=== PATIENT | male | born 1985 | race Caucasian/White ===

== ENCOUNTER → 2022-06-10 | Outpatient (REF) | payer OTHER | LOC: M LAB REF 16:33 | PROVIDERS: ATTEND Physician Assistant | DX: J02.9 Acute pharyngitis, unspecified (principal) ==

== ENCOUNTER → 2023-03-24 | Outpatient (REF) | payer OTHER | LOC: M LAB REF 21:20 | PROVIDERS: ATTEND Physician Assistant | DX: B34.9 Viral infection, unspecified (principal) ==